=== PATIENT | female | born 1960 | race Caucasian/White ===

== ENCOUNTER → 2019-11-22 | Outpatient (CLI) | payer OTHER ==
--- NOTE | 2019-11-24 10:24 | MM ---
Reason for exam: screening (asymptomatic). Last mammogram was performed 6 years ago. History: Patient is postmenopausal and is nulliparous. Benign US left CoreBiopsy of the left breast, July 23, 2005. Excisional biopsy of the left breast, 1989. Physical Findings: A clinical breast exam by your physician is recommended on an annual basis and results should be correlated with mammographic findings. MG 3D Screening Mammo W/Cad Bilateral CC and MLO view(s) were taken. Prior study comparison: December 04, 2013, bilateral digital screening mammo w/CAD. September 30, 2011, CAD bilateral diagnostic mammogram. There is chronic nodularity in the left breast. No significant changes when compared with prior studies. ASSESSMENT: Benign, BI-RAD 2 RECOMMENDATION: Routine screening mammogram of both breasts in 1 year.
== END | disposition home or self-care (01) ==
LOC: RADMAMWWP 10:30
PROVIDERS: ATTEND Family Medicine
DX: Z12.31 Encounter for screening mammogram for malignant neoplasm of breast (principal)
CPT/HCPCS: 77063; 77067

== ENCOUNTER → 2022-04-27 | Outpatient (CLI) | payer OTHER ==
--- NOTE | 2022-04-28 08:43 | MM ---
Reason for Exam: Screening (asymptomatic). Last mammogram was performed 2 year(s) and 5 month(s) ago. Patient History: Menarche at age 11. Patient has no children. Right ovary removed at age 34. Hysterectomy at age 34. Postmenopausal. 1989, Excisional Biopsy on the Left side. 07/23/2005, Benign Core Biopsy on the left side. Risk Values: Suzette 5 year model risk: 2.6%. NCI Lifetime model risk: 10.9%. Prior Study Comparison: 07/10/2005 Bilateral Screening Mammogram, [facility]. 07/16/2005 Left Diagnostic Mammogram, [facility] 07/16/2005 Left Diagnostic Ultrasound, [facility]. 08/10/2006 Bilateral Diagnostic Mammogram, [facility]. 08/10/2006 Left Diagnostic Ultrasound, [facility] 08/30/2007 Bilateral Diagnostic Mammogram, [facility] 08/30/2007 Bilateral Diagnostic Ultrasound, [facility]. 05/29/2008 Right Diagnostic Mammogram, [facility]. 05/29/2008 Left Diagnostic Ultrasound, [facility]. 07/24/2009 Bilateral Screening Mammogram, [facility]. 09/29/2010 Bilateral Screening Mammogram, [facility]. 10/06/2010 Right Diagnostic Mammogram, [facility]. 09/30/2011 Bilateral Diagnostic Mammogram, [facility]. 12/04/2013 Bilateral Screening Mammogram, [facility]. 11/22/2019 Bilateral Screening Mammogram, [facility]. Tissue Density: The breast tissue is heterogeneously dense. This may lower the sensitivity of mammography. Findings: Analyzed By CAD. There is no suspicious group of microcalcifications or new suspicious mass in either breast. Chronic nodularity involving the upper outer margin left breast stable. Overall Assessment: Benign, BI-RAD 2 Management: Screening Mammogram of both breasts in 1 year. A clinical breast exam by your physician is recommended on an annual basis and results should be correlated with mammographic findings. Electronically signed and approved by: Cali Arrington M.D. Radiologis
== END | disposition home or self-care (01) ==
LOC: RADMAMWWP 11:06
PROVIDERS: ATTEND Family Medicine
DX: Z12.31 Encounter for screening mammogram for malignant neoplasm of breast (principal); Z78.0 Asymptomatic menopausal state
CPT/HCPCS: 77067

== ENCOUNTER → 2024-01-20 | Outpatient (CLI) | payer OTHER ==
--- NOTE | 2024-01-21 13:09 | MM ---
Reason for Exam: Screening (asymptomatic). Last mammogram was performed 1 year(s) and 9 month(s) ago. Patient History: Menarche at age 11. Patient has no children. Right ovary removed at age 34. Hysterectomy at age 34. Postmenopausal. 1989, Excisional Biopsy on the Left side. 07/23/2005, Benign Core Biopsy on the left side. Risk Values: Suzette 5 year model risk: 2.7%. NCI Lifetime model risk: 10.6%. Prior Study Comparison: 12/04/2013 Bilateral Screening Mammogram, [facility]. 11/22/2019 Bilateral Screening Mammogram, [facility]. 04/27/2022 Bilateral MG screening mammo w CAD, [facility]. Tissue Density: The breasts are almost entirely fatty. Findings: Analyzed By CAD. Right breast: There is no suspicious group of microcalcifications or new suspicious mass. Left breast: There is no suspicious group of microcalcifications or new suspicious mass. Overall Assessment: Negative, BI-RAD 1 Management: Screening Mammogram of both breasts in [address] [facility] will attempt to contact patient to return for supplemental views and ultrasound if indicated. Patient should continue monthly self-breast exams. A clinical breast exam by your physician is recommended on an annual basis. This exam should not preclude additional follow-up of suspicious palpable abnormalities. Note on Suzette scores and lifetime risk: 1. A Suzette score greater than 3% is considered moderate risk. If this is the case, consider specialist referral to assess eligibility for a risk reducing agent. 2. If overall lifetime risk for the development of breast cancer is 20% or higher, the patient may qualify for future screening with alternating mammogram and breast MRI. Electronically signed and approved by: Josh Mayers DO
== END | disposition home or self-care (01) ==
LOC: RADMAMWWP 09:44
PROVIDERS: ATTEND Family Medicine
DX: Z12.31 Encounter for screening mammogram for malignant neoplasm of breast (principal); Z78.0 Asymptomatic menopausal state
CPT/HCPCS: 77063; 77067